=== PATIENT | female | born 1945 | race Caucasian/White ===

== ENCOUNTER 2023-09-18 06:21 | Emergency (ER) | payer MEDICARE, BC ==
[~2023-09-18] VITALS: Ht 162.6 cm; Wt 71.4 kg
[~2023-09-18 06:21] MED LIST: ATEN50TA PO; CHLO25TA2 PO; CHOL4POW4 PO; LISI-644 PO; METF500T PO
[2023-09-18 07:23] LABS: BASOPHILS % (AUTO) 0.7 % (0-1); EOSINOPHILS # (AUTO) 0.2 X10'3 (0-0.9); EOSINOPHILS % (AUTO) 2.7 % (0-6); HEMATOCRIT 41.6 % (35.0-45.0); LYMPHOCYTES # (AUTO) 2.5 X10'3 (1.1-4.8); LYMPHOCYTES % (AUTO) 41.8 % (21-51); MEAN CORPUSCULAR HGB CONC 33.7 g/dL (33.0-36.5); MEAN CORPUSCULAR VOLUME 94.9 FL (78-98); MEAN PLATELET VOLUME 8.4 FL (7.4-10.4); MONOCYTES # (AUTO) 0.4 X10'3 (0-0.9); MONOCYTES % (AUTO) 7.2 % (2-12); NEUTROPHILS # (AUTO) 2.8 X10'3 (1.8-7.7); NEUTROPHILS % (AUTO) 47.6 % (42-75); PLATELET COUNT 225 X10'3 (140-440); RED BLOOD COUNT 4.39 X10'6 (4.20-5.60); RED CELL DISTRIBUTION WIDTH 14.5 % (11.5-14.5)
[2023-09-18 07:29] LABS: ALANINE AMINOTRANSFERASE 48 U/L (12-78); ALBUMIN/GLOBULIN RATIO 1.1 (1.1-1.5); ALKALINE PHOSPHATASE 51 IU/L (46-116); ANION GAP 10 (8-16); BILIRUBIN,TOTAL 0.7 MG/DL (0.1-1.0); BLOOD UREA NITROGEN 31 MG/DL (7-18); BUN/CREATININE RATIO 17.6 (10.0-20.0); CALCIUM 9.2 MG/DL (8.5-10.1); CHLORIDE 103 MMOL/L (99-107); CREATININE 1.76 MG/DL (0.40-0.90); GLUCOSE 137 MG/DL (70-104); PRO BRAIN NATRIURETIC PEPTIDE 104 PG/ML (0-450); SODIUM 137 MMOL/L (135-145); TOTAL PROTEIN 7.6 G/DL (6.4-8.2); eCRCL 23 ML/MIN; eGFR 28 ML/MIN
[2023-09-18 07:31] LABS: ASPARTATE AMINO TRANSFERASE 47 U/L (10-37); POTASSIUM 4.8 MMOL/L (3.5-5.1)
[2023-09-18 07:41] LABS: BILIRUBIN,URINE SMALL (Neg); CLARITY,URINE SLIGHTLY CLOUDY (Clear); COLOR,URINE YELLOW (Yellow); GLUCOSE, URINE NEGATIVE (Neg); KETONES,URINE TRACE mg/dl (Neg); LEUKOCYTE ESTERASE ,URINE SMALL (Neg); NITRITES, URINE NEGATIVE (Neg); OCCULT BLOOD,URINE NEGATIVE (Neg); PROTEIN,URINE NEGATIVE (Neg); UROBILINOGEN,URINE 0.2 E.U/dL (0.2-1.0)
[2023-09-18 07:45] LABS: UA COLLECTION TYPE CLN CATCH MIDSTREAM
[2023-09-18 07:55] LABS: MUCUS STRANDS FEW /LPF (Neg); SQUAMOUS EPITHELIAL CELL,UR FEW /LPF (FEW)
[2023-09-18 07:56] LABS: HYALINE CASTS 0-3 /LPF (NEGATIVE)
[2023-09-18 07:57] LABS: BACTERIA,URINE FEW /HPF (Neg); RBC,URINE 0-2 /HPF (0-2); WBC,URINE 0-4 /HPF (0-4)
[2023-09-18] MEDS ORDERED: cloNIDine 0.1 mg tablet PO SCH (08:00)
--- NOTE | 2023-09-18 08:50 | NUR ---
Pt concerned about BP 110/63, aware and at bedside. MD requested this procedure writer provide pt with oral fluids and ambulate on unit.
--- NOTE | 2023-09-18 08:55 | NUR ---
Pt provided fluids and ambulated around the unit with no assist, gate steady, denies dizziness or palpitations.
[2023-09-18 09:02] VITALS: BP 125/66; PULSE 92; RESP 14; O2SAT 98
== END 2023-09-18 08:57 | disposition home or self-care (01) ==
LOC: ER 06:21
DX: R00.2 Palpitations (principal); R42 Dizziness and giddiness
CPT/HCPCS: 36415; 80053; 81001; 82948; 83880; 84484; 85025; 93005; 99285